=== PATIENT | female | born 1995 | race Caucasian/White ===

== ENCOUNTER 2019-12-31 21:35 | Emergency (ER) | payer OTHER ==
[~2019-12-31] VITALS: Ht 162.6 cm; Wt 48.7 kg
[2019-12-31 21:45] VITALS: Ht 162.6 cm; Wt 48.7 kg
[2019-12-31 22:40] VITALS: BP 123/74
== END 2019-12-31 22:40 | disposition home or self-care (01) ==
LOC: ED 21:35
DX: S05.01XA Injury of conjunctiva and corneal abrasion without foreign body, right eye, initial encounter (principal); X58.XXXA Exposure to other specified factors, initial encounter; Y93.89 Activity, other specified; Y92.89 Other specified places as the place of occurrence of the external cause; Y99.8 Other external cause status